=== PATIENT | male | born 1950 | race Caucasian/White ===

== ENCOUNTER → 2023-11-13 08:22 | Outpatient (REF) | payer MEDICARE, OTHER, SELFPAY ==
[2023-11-13 11:12] LABS: ALT (SGPT) 28 U/L (0-50); AST (SGOT) 43 U/L (17-59); Albumin 4.4 g/dl (3.5-5.0); Alkaline Phosphatase 99 U/L (38-126); Blood Urea Nitrogen 17 mg/dl (9-20); Calcium 9.8 mg/dl (8.4-10.2); Carbon Dioxide 27 mmol/L (22-30); Chloride 100 mmol/L (98-107); Glucose 97 mg/dl (70-99); HDL Cholesterol 23 mg/dl; LDL Cholesterol, Calculated 55 mg/dl; Potassium 4.1 mmol/L (3.5-5.1); Sodium 139 mmol/L (135-145); Total Bilirubin 1.8 mg/dl (0.2-1.3); Total Cholesterol 122 mg/dl (50-199); Triglyceride 221 mg/dl (10-149); Very Low Density Lipoprotein 44 mg/dl (0-30); eGFR > 60.00
== END ==
LOC: REG 08:22
PROVIDERS: ATTENDING PHYSICIAN Family Medicine
DX: R73.01 Impaired fasting glucose (principal); E78.2 Mixed hyperlipidemia
CPT/HCPCS: 36415; 80053; 80061

== ENCOUNTER → 2023-11-14 15:46 | Outpatient (REF) | payer MEDICARE, OTHER, SELFPAY | LOC: RAD 15:46 | PROVIDERS: ATTENDING PHYSICIAN Family Medicine | DX: M79.672 Pain in left foot (principal) | CPT/HCPCS: 73630 ==

== ENCOUNTER → 2024-05-18 07:41 | Outpatient (REF) | payer MEDICARE, OTHER, SELFPAY ==
[2024-05-18 08:48] LABS: ALT (SGPT) 36 U/L (0-50); AST (SGOT) 31 U/L (17-59); Albumin 4.2 g/dl (3.5-5.0); Alkaline Phosphatase 88 U/L (38-126); Blood Urea Nitrogen 19 mg/dl (9-20); Calcium 9.7 mg/dl (8.4-10.2); Carbon Dioxide 30 mmol/L (22-30); Chloride 103 mmol/L (98-107); Glucose 106 mg/dl (70-99); HDL Cholesterol 20 mg/dl; Potassium 3.8 mmol/L (3.5-5.1); Sodium 144 mmol/L (135-145); Total Bilirubin 0.7 mg/dl (0.2-1.3); Total Cholesterol 127 mg/dl (50-199); Total Protein 7.6 g/dl (6.3-8.2); eGFR > 60.00
[2024-05-18 08:50] LABS: Triglyceride 426 mg/dl (10-149)
[2024-05-18 09:14] LABS: LDL Cholesterol, Direct 38 mg/dl
[2024-05-18 09:18] LABS: PSA, Total - Screen 2.21 ng/ml (0.0-4.0)
== END ==
LOC: REG 07:41
PROVIDERS: ATTENDING PHYSICIAN Family Medicine
DX: I10 Essential (primary) hypertension (principal); E78.2 Mixed hyperlipidemia; K76.0 Fatty (change of) liver, not elsewhere classified; Z12.5 Encounter for screening for malignant neoplasm of prostate
CPT/HCPCS: 36415; 80053; 80061; 83721; G0103

== ENCOUNTER → 2024-11-11 09:13 | Outpatient (REF) | payer MEDICARE, OTHER, SELFPAY ==
[2024-11-11 11:12] LABS: ALT (SGPT) 42 U/L (0-50); AST (SGOT) 32 U/L (17-59); Albumin 4.1 g/dl (3.5-5.0); Alkaline Phosphatase 94 U/L (38-126); Blood Urea Nitrogen 16 mg/dl (9-20); Calcium 9.8 mg/dl (8.4-10.2); Carbon Dioxide 29 mmol/L (22-30); Chloride 105 mmol/L (98-107); Glucose 99 mg/dl (70-99); HDL Cholesterol 20 mg/dl; LDL Cholesterol, Calculated 44 mg/dl; Potassium 4.1 mmol/L (3.5-5.1); Sodium 143 mmol/L (135-145); Total Bilirubin 1.4 mg/dl (0.2-1.3); Total Cholesterol 138 mg/dl (50-199); Total Protein 7.6 g/dl (6.3-8.2); Triglyceride 374 mg/dl (10-149); Very Low Density Lipoprotein 74 mg/dl (0-30); eGFR > 60.00
== END ==
LOC: REG 09:13
PROVIDERS: ATTENDING PHYSICIAN Family Medicine
DX: E78.2 Mixed hyperlipidemia (principal); R73.01 Impaired fasting glucose; K76.0 Fatty (change of) liver, not elsewhere classified
CPT/HCPCS: 36415; 80053; 80061

== ENCOUNTER → 2024-11-19 09:21 | Outpatient (REF) | payer MEDICARE, OTHER, SELFPAY ==
[2024-11-19 10:28] LABS: % Eosinophils 1.9 % (0-6); % Immature Granulocytes 0.5 % (0-0.5); % Lymphocytes 26.5 % (20.5-51.1); % Monocytes 8.3 % (1.7-9.3); % Neutrophils 61.8 % (42.2-75.2); Absolute Basophils 0.1 10^3/uL (0-0.2); Absolute Eosinophils 0.2 10^3/uL (0-0.7); Absolute Lymphocytes 2.1 10^3/uL (1.2-3.4); Absolute Monocytes 0.7 10^3/uL (0.1-0.6); Hematocrit 42.1 % (39.0-52.0); Hemoglobin 14.6 g/dL (13.0-18.0); Mean Corp Hgb Conc. 34.7 g/dL (33.0-37.0); Mean Corpuscular Hgb 32.5 pg (27.0-31.0); Mean Corpuscular Volume 93.8 fL (80.0-94.0); Mean Platelet Volume 9.6 fL (7.4-10.4); Nucleated Red Blood Cells % 0 % (-); Platelet Count 234 10^3/uL (130-400); Red Blood Cell Count 4.49 10^6/uL (4.70-6.10); Red Cell Dist. Width 13.2 % (11.5-14.5)
[2024-11-19 11:59] LABS: TSH 1.03 uIU/ml (0.47-4.68)
== END ==
LOC: REG 09:21
PROVIDERS: ATTENDING PHYSICIAN Family Medicine
DX: R53.83 Other fatigue (principal)
CPT/HCPCS: 36415; 84443; 85025

== ENCOUNTER → 2025-03-24 09:14 | Outpatient (REF) | payer MEDICARE, OTHER, SELFPAY ==
[2025-03-24 10:32] LABS: Hematocrit 39.2 % (39.0-52.0); Hemoglobin 13.4 g/dL (13.0-18.0); Mean Corp Hgb Conc. 34.2 g/dL (33.0-37.0); Mean Corpuscular Volume 93.6 fL (80.0-94.0); Nucleated Red Blood Cells % 0 % (-); Platelet Count 223 10^3/uL (130-400); Red Cell Dist. Width 11.9 % (11.5-14.5)
[2025-03-24 11:18] LABS: C-Reactive Protein 27.50 mg/L (0.0-10.00)
[2025-03-24 11:34] LABS: Uric Acid 8.2 mg/dl (3.5-8.5)
[2025-03-25 16:13] LABS: Rheumatoid Agglutinin Less Than 10 IU (<10 IU)
[2025-03-25 16:43] LABS: Lyme Antibody Screen, EIA Negative (Negative)
== END ==
LOC: REG 09:14
PROVIDERS: ATTENDING PHYSICIAN Family Medicine
DX: M19.90 Unspecified osteoarthritis, unspecified site (principal); R31.9 Hematuria, unspecified
CPT/HCPCS: 36415; 84550; 85025; 85652; 86140; 86430; 86618

== ENCOUNTER → 2025-04-12 09:11 | Outpatient (REF) | payer MEDICARE, OTHER, SELFPAY | LOC: RAD 09:11 | PROVIDERS: ATTENDING PHYSICIAN Student in an Organized Health Care Education/Training Program; FAMILY PHYSICIAN Family Medicine | DX: M25.531 Pain in right wrist (principal) | CPT/HCPCS: 73100; 73120 ==

== ENCOUNTER → 2025-04-23 09:02 | Outpatient (REF) | payer MEDICARE, OTHER, SELFPAY ==
[2025-04-23 10:20] LABS: Hematocrit 42.4 % (39.0-52.0); Hemoglobin 14.5 g/dL (13.0-18.0); Mean Corp Hgb Conc. 34.2 g/dL (33.0-37.0); Mean Corpuscular Volume 93.2 fL (80.0-94.0); Nucleated Red Blood Cells % 0 % (-); Platelet Count 248 10^3/uL (130-400); Red Cell Dist. Width 13.0 % (11.5-14.5)
[2025-04-23 10:45] LABS: ALT (SGPT) 36 U/L (0-50); AST (SGOT) 22 U/L (17-59); Albumin 4.0 g/dl (3.5-5.0); Alkaline Phosphatase 88 U/L (38-126); Blood Urea Nitrogen 17 mg/dl (9-20); Calcium 9.6 mg/dl (8.4-10.2); Carbon Dioxide 27 mmol/L (22-30); Chloride 104 mmol/L (98-107); Glucose 93 mg/dl (70-99); Potassium 3.9 mmol/L (3.5-5.1); Sodium 140 mmol/L (135-145); Total Protein 7.4 g/dl (6.3-8.2); Uric Acid 11.1 mg/dl (3.5-8.5); eGFR > 60.00
[2025-04-23 10:47] LABS: C-Reactive Protein 11.70 mg/L (0.0-10.00)
== END ==
LOC: REG 09:02
PROVIDERS: ATTENDING PHYSICIAN Student in an Organized Health Care Education/Training Program; FAMILY PHYSICIAN Family Medicine
DX: E79.0 Hyperuricemia without signs of inflammatory arthritis and tophaceous disease (principal); M19.90 Unspecified osteoarthritis, unspecified site; M25.40 Effusion, unspecified joint; M79.89 Other specified soft tissue disorders; R70.0 Elevated erythrocyte sedimentation rate; R79.82 Elevated C-reactive protein (CRP); Z87.442 Personal history of urinary calculi
CPT/HCPCS: 36415; 80053; 84550; 85025; 85652; 86140; 86200

== ENCOUNTER → 2025-05-12 09:59 | Outpatient (REF) | payer MEDICARE, OTHER, SELFPAY | LOC: HWRAD 09:59 | PROVIDERS: ATTENDING PHYSICIAN Specialist; FAMILY PHYSICIAN Family Medicine | DX: N20.0 Calculus of kidney (principal) | CPT/HCPCS: 74176 ==

== ENCOUNTER 2025-05-15 12:29 | Emergency (ER) | payer MEDICARE, OTHER, SELFPAY ==
[2025-05-15 12:47] VITALS: BP 115/79
[2025-05-15 15:24] LABS: Hematocrit 40.9 % (39.0-52.0); Hemoglobin 14.0 g/dL (13.0-18.0); Mean Corp Hgb Conc. 34.2 g/dL (33.0-37.0); Mean Corpuscular Volume 91.3 fL (80.0-94.0); Nucleated Red Blood Cells % 0 % (-); Platelet Count 305 10^3/uL (130-400); Red Cell Dist. Width 13.0 % (11.5-14.5)
[2025-05-15] MEDS: NORCO 5/325 1 TABLET PO (15:24)
[2025-05-15 15:48] LABS: ALT (SGPT) 24 U/L (0-50); AST (SGOT) 24 U/L (17-59); Albumin 4.3 g/dl (3.5-5.0); Alkaline Phosphatase 109 U/L (38-126); Blood Urea Nitrogen 13 mg/dl (9-20); Calcium 9.5 mg/dl (8.4-10.2); Carbon Dioxide 28 mmol/L (22-30); Chloride 103 mmol/L (98-107); Glucose 98 mg/dl (70-99); Potassium 3.7 mmol/L (3.5-5.1); Sodium 137 mmol/L (135-145); Total Protein 8.0 g/dl (6.3-8.2); eGFR > 60.00
[2025-05-15 15:52] LABS: C-Reactive Protein 32.40 mg/L (0.0-10.00)
[2025-05-15 16:23] LABS: Body Fluid Second Tech EYM
--- NOTE | 2025-05-15 17:23 | ED.GENMED ---
History of Present Illness
General
Chief Complaint: Musculo-Skeletal Complaint
Time Seen by Provider: 05/15/25 14:36
Past History
Past History
ED Past Medical History: GERD and Other (BPH, OA)
ED Past Surgical History: None
Social History
Tobacco: Non-smoker
Personal:
Living: with family
Employment: Retired
Family History
Family History: Other (Noncontributory)
Course
Orders/Labs/Results
Orders:
Orders
05/15/25 14:53
Hydrocodone 5/APAP 325 [[place] 5/325] 1 tablet PO NOW STA
05/15/25 15:16
C-Reactive Protein Urgent
Comment: ESR & CRP ADDED ON BY FLOOR 3:30PM 05-15-25
Complete Blood Count/With Diff Urgent
Comprehensive Metabolic Panel Urgent
Erythrocyte Sed Rate Urgent
Lyme Progressive Urgent
05/15/25 15:25
Add On- LAB Urgent
Tests Added?: esr, crp
Gram Stain Stat
RANULFO Source: Joint
Specimen Description:
Date Specimen was Collected: 05/15/25
Time Specimen was Collected: 15:39
05/15/25 15:44
Body Fluid Cell Count Urgent
What is the Body Fluid: joint
Date Specimen was Collected: 05/15/25
Time Specimen was Collected: 15:38
Comment: with DIFF
Body Fluid Crystals Urgent
What is the Body Fluid: joint
Date Specimen was Collected: 05/15/25
Time Specimen was Collected: 15:38
Fluid Culture with Gram Stain Urgent
RANULFO Source: Joint Fluid
Specimen Description:
Date Specimen was Collected: 05/15/25
Time Specimen was Collected: 15:39
05/15/25 17:16
COVID-19 Antigen Urgent
Source: Nasal Swab
Influenza A+B Rapid Molecular Urgent
RANULFO Source: Nasal Swab
Specimen Description:
05/15/25 17:20
Ankle, Right 3 view CR [CR Ankle - Right Min 3 Views *] Urgent
Comment:
Reason For Exam: yandel/swelling
CR Knee- Right 4 Or More View* Urgent
Comment:
Reason For Exam: pain/swelling
05/15/25 17:21
Urinalysis Reflex To Culture Urgent
Date Specimen was Collected: 05/15/25
Time Specimen was Collected: 17:20
05/15/25 17:27
Colchicine 0.6 mg PO NOW STA
Colchicine 1.2 mg PO NOW STA
Abnormal Lab Results
05/15/25
15:16
WBC 12.5 H 10^3/uL
(4.8-10.8)
RBC 4.48 L 10^6/uL
(4.70-6.10)
MCH 31.3 H pg
(27.0-31.0)
Absolute Neuts (auto) 9.2 H 10^3/uL
(1.4-6.5)
Absolute Monos (auto) 1.0 H 10^3/uL
(0.1-0.6)
Lymphocytes % 18.0 L %
(20.5-51.1)
ESR 42 H mm/hour
(0-20)
Total Bilirubin 2.3 H mg/dl
(0.2-1.3)
C-Reactive Protein 32.40 H mg/L
(0.0-10.00)
05/15/25 15:16
05/15/25 15:16
Vital Signs
Temp: 37.4 C
Initial and Last Documented VS:
Initial Vital Signs
Temp Pulse Resp BP Pulse Ox
36.9 C 95 18 115/79 95
05/15/25 12:47 05/15/25 12:47 05/15/25 12:47 05/15/25 12:47 05/15/25 12:47
Last Documented Vital Signs
Temp Pulse Resp BP Pulse Ox
37.4 C 95 18 115/79 95
05/15/25 17:46 05/15/25 12:47 05/15/25 12:47 05/15/25 12:47 05/15/25 17:24
MDM/Problems Addressed
Differential Diagnosis Includes:
see MDM
MDM/Problems Addressed:
Note:
CHIEF COMPLAINT(S)
Pain and swelling in the knee and leg.
HISTORY OF PRESENT ILLNESS
The patient 75 y/o M with h/o RA, and recent dx gout, just started MTX 2 days ago from rheum for both
here with R knee pain for a few days
actually started in the R ankle and went up to the knee he says
no injury
having trouble walking
swelling to the knee appreciate
unable to sleep
no warmth, redness, color change, pulselessness/foot drop
. There is no recollection of any specific injury or trauma to the knee, although he mentions a possible twisting incident.
The symptoms of pain and swelling reportedly began before starting methotrexate. The patient denies any history of blood clots but has undergone past wrist surgery due to pain, which he experiences intermittently.\\
pt says he had a fever today, 101 this morning but didn't take anything for it
no cough/coldymptoms
no cp, sob
h/o provoked ddvt previously
CHRONIC MEDICAL CONDITIONS SIGNIFICANTLY AFFECTING CARE
The patient has been suggested to possibly have rheumatoid arthritis based on previous evaluations, but there seems to be uncertainty about this diagnosis. He is currently taking medication for high blood pressure and possibly related medications
prescribed by a senior case manager.
SOCIAL HISTORY
The patient denies using chronic pain medications but mentions taking fuoc-aej-bnllijh medications like Advil occasionally.
MEDICATIONS
- Methotrexate prescribed by a senior case manager.
- Blood pressure medication.
- Uric acid-related medication.
REVIEW OF SYSTEMS
- Musculoskeletal: Persistent pain and swelling in the knee extending to the calf and ankle. Affected mobility and sleep due to discomfort.
- Neurological: No significant chronic pain management medication usage reported.
PHYSICAL EXAM
GENERAL: Alert , in no apparent distress
EYE: pupils equal and reactive
NECK: Supple
ENT: o/p clr, mmm.
CARDIAC: Regular rate and rhythm .
LUNGS: Clear breath sounds bilaterally, no acute respiratory distress, no wheezes/rales/rhonchi
ABDOMEN: Soft, without focal tenderness, no r/g, no cvat, normal bowel sounds
NEUROLOGICAL: Alert and oriented, no focal neuro deficits
SKIN: Warm and dry, skin intact. No warmth or redness or rash on the right leg
MUSCULOSKELETAL: There is moderate swelling to the right knee which looks arthritic but there is also a pretty large suprapatellar effusion without erythema or warmth, the right leg is tender diffusely but he has a great pulse, can flex the knee
approximately 30 degrees, he also can range the ankle but has some tenderness throughout as well, there is no ankle effusion noted
PSYCH: Normal and appropriate interaction.
- Nursing notes reviewed and vital signs reviewed.
PROBLEM LIST
Acute:
- Knee pain and swelling.
- Calf and ankle discomfort impacting mobility.
Chronic:
- Possible rheumatoid arthritis.
- Elevated uric acid levels.
PLAN
- Continue current prescribed medications.
- Follow-up with senior case manager for ongoing management of joint symptoms and evaluation of treatment effectiveness.
DIFFERENTIAL DIAGNOSIS
The Differential Diagnosis includes, in no particular order and is not limited to:
- Rheumatoid arthritis
- Gout
- Osteoarthritis
- Septic arthritis
- Deep vein thrombosis
- Psoriatic arthritis
- Bursitis
- Tendinitis
- Meniscal injury
- Ligamentous strain
CARE-UPDATE
05/15/25 - 17:07
Patient presents for atraumatic right knee pain, he also has right ankle pain, it is really confusing whether it started in his ankle or his knee he is told me in different provider to different stories. But he does have RA and recently had a serum
uric acid level that was elevated so he thinks he has gout. He also took 2 methotrexate the last 2 days to start from his senior case manager. He also had a fever this morning. On exam he looks to have an arthritic right knee, he can flex it 30
degrees, I had a low suspicion for septic arthritis, but felt that he would have some relief with a therapeutic arthrocentesis as well as diagnostic testing to rule out septic arthritis. The fluid analysis looks like gout/inflammatory arthritis and
not septic arthritis.
Patient reports improved pain after medication. F Despite the positive gout diagnosis, the cause of the fever remains uncertain. Plans have been made to swab for influenza and COVID-19, with a consideration of previous urine sample results. The
patients foot and ankle are also symptomatic, potentially due to gouts propensity to affect multiple joints. Discharge plans include monitoring the fever as it may not be directly linked to the current diagnosis of gout.
*Pulse Oximetry
SaO2: 95
Oxygen Mode of Delivery: Room air
ED Attending Note
-
Portions of this chart may have been created with voice recognition software.� Occasional wrong word or��sound alike� substitutions may have occurred due to the inherent limitations of voice recognition software.
Discharge Plan
Departure
Patient Disposition: Home (Routine Discharge)
Date of Disposition: 05/15/25
Time of Disposition: 17:42
Patient with high blood pressure during this ER visit?: No
Condition: Fair
Covid-19: Not Applicable
Discharge Problem:
Gout
Instructions: Gout - ED (DC)
Prescriptions:
New
hydrocodone-acetaminophen 5-325 mg tablet
1 tab PO BID PRN (Reason: Pain) Qty: 5 0RF
colchicine 0.6 mg tablet
0.6 mg PO DAILY Qty: 5 0RF
No Action
PreserVision AREDS-2 1 EACH capsule
1 ea PO BID
lisinopril-hydrochlorothiazide 20-12.5 mg Tablet
2 tab PO DAILY
famotidine 40 mg Tablet
40 mg PO HS
tamsulosin [Flomax] 0.4 mg capsule
0.4 mg PO DAILY Qty: 14 0RF
Referrals:
João Valentine MD [Family Provider, Family Practice] - Follow up in 2-3 days
Activity Restrictions/Additional Instructions:
The fluid in your knee is consistent with gout fluid. You should take colchicine 0.6 mg once a day for 5 more days
You can continue the methotrexate. Watch the fever, were not really sure why you have a fever today. Your urine was normal, your flu and COVID were negative
Your blood work showed that your white count was elevated slightly and you had some signs of inflammation in with positive inflammatory markers. This is all consistent with either gout or rheumatoid arthritis. But he should closely follow-up with
your senior case manager. Watch for any redness, warmth, worsening swelling to your knee or leg, inability to walk. Return for these as needed. Otherwise use a cane to help you walk, use the Jasmeet wrap during the day and remove it at night
If pain is more severe you can use a Vicodin every 6 hours as needed, this is a narcotic, no alcohol or driving on this medication
Interventions
Interventions:
*Risk Screen - Suicide Last Done: 05/15/25 12:47
*General Assessment Last Done: 05/15/25 15:07
*Neglect/Abuse Screening Last Done: 05/15/25 15:07
*ED- Fall Risk Assessment Last Done: 05/15/25 15:07
*ED COVID-19 Vaccine History Last Done: 05/15/25 15:07
*ED Influenza Vaccine History Last Done: 05/15/25 15:07
ED-Musculoskeletal Assessment Last Done: 05/15/25 15:07
Discharge Date and Time
Print Language: CITIZEN OF [place]
[2025-05-15 17:33] LABS: Urine Character Clear (Clear)
[2025-05-15 17:39] LABS: COVID-19 Antigen Negative (Negative)
[2025-05-15] MEDS: COLCHICINE 1.2 MG PO (18:02)
[2025-05-17 16:07] LABS: Lyme Antibody Screen, EIA Negative (Negative)
== END 2025-05-15 18:20 | disposition home or self-care (01) ==
LOC: EMR 12:29
PROVIDERS: Physician Assistant; EMERGENCY PHYSICIAN Emergency Medicine; FAMILY PHYSICIAN Family Medicine
DX: M10.9 Gout, unspecified (principal); M06.9 Rheumatoid arthritis, unspecified; Z11.52 Encounter for screening for COVID-19
CPT/HCPCS: 99284; 73564; 73610; 80053; 81003; 85025; 85652; 86140; 86618; 87015; 87070; 87205; 87502; 87811; 89051; 89060

== ENCOUNTER → 2025-05-18 07:17 | Outpatient (REF) | payer MEDICARE, OTHER, SELFPAY ==
[2025-05-18 09:00] LABS: Hematocrit 40.7 % (39.0-52.0); Hemoglobin 13.3 g/dL (13.0-18.0); Mean Corp Hgb Conc. 32.7 g/dL (33.0-37.0); Mean Corpuscular Volume 95.1 fL (80.0-94.0); Nucleated Red Blood Cells % 0 % (-); Platelet Count 311 10^3/uL (130-400); Red Cell Dist. Width 12.9 % (11.5-14.5)
[2025-05-18 09:27] LABS: ALT (SGPT) 22 U/L (0-50); AST (SGOT) 22 U/L (17-59); Albumin 4.0 g/dl (3.5-5.0); Alkaline Phosphatase 87 U/L (38-126); Blood Urea Nitrogen 20 mg/dl (9-20); Calcium 9.5 mg/dl (8.4-10.2); Carbon Dioxide 26 mmol/L (22-30); Chloride 106 mmol/L (98-107); Glucose 107 mg/dl (70-99); Potassium 3.7 mmol/L (3.5-5.1); Sodium 141 mmol/L (135-145); Total Protein 7.4 g/dl (6.3-8.2); Uric Acid 9.6 mg/dl (3.5-8.5); eGFR > 60.00
[2025-05-18 09:36] LABS: C-Reactive Protein 46.30 mg/L (0.0-10.00)
== END ==
LOC: REG 07:17
PROVIDERS: ATTENDING PHYSICIAN Student in an Organized Health Care Education/Training Program; FAMILY PHYSICIAN Family Medicine
DX: E79.0 Hyperuricemia without signs of inflammatory arthritis and tophaceous disease (principal); M19.90 Unspecified osteoarthritis, unspecified site; M25.40 Effusion, unspecified joint; M79.89 Other specified soft tissue disorders; R70.0 Elevated erythrocyte sedimentation rate; R79.82 Elevated C-reactive protein (CRP); Z87.442 Personal history of urinary calculi
CPT/HCPCS: 36415; 80053; 84550; 85025; 85652; 86140

== ENCOUNTER → 2025-05-25 09:04 | Outpatient (REF) | payer MEDICARE, OTHER, SELFPAY ==
[2025-05-25 11:22] LABS: ALT (SGPT) 64 U/L (0-50); AST (SGOT) 28 U/L (17-59); Albumin 4.0 g/dl (3.5-5.0); Alkaline Phosphatase 69 U/L (38-126); Blood Urea Nitrogen 17 mg/dl (9-20); Calcium 9.7 mg/dl (8.4-10.2); Carbon Dioxide 31 mmol/L (22-30); Chloride 103 mmol/L (98-107); Glucose 77 mg/dl (70-99); HDL Cholesterol 27 mg/dl; LDL Cholesterol, Calculated 69 mg/dl; Potassium 3.5 mmol/L (3.5-5.1); Sodium 140 mmol/L (135-145); Total Protein 7.4 g/dl (6.3-8.2); Very Low Density Lipoprotein 46 mg/dl (0-30); eGFR > 60.00
[2025-05-25 12:05] LABS: PSA, Total - Screen 2.06 ng/ml (0.0-4.0)
[2025-05-26 21:32] LABS: Glu-6-Phosphate Dehydrogenase 13.8 U/g Hb (9.6-16.3)
== END ==
LOC: REG 09:04
PROVIDERS: ATTENDING PHYSICIAN Student in an Organized Health Care Education/Training Program; FAMILY PHYSICIAN Family Medicine
DX: Z12.5 Encounter for screening for malignant neoplasm of prostate (principal); K21.9 Gastro-esophageal reflux disease without esophagitis; R73.01 Impaired fasting glucose; E78.2 Mixed hyperlipidemia; Z87.442 Personal history of urinary calculi; Z51.81 Encounter for therapeutic drug level monitoring; R79.82 Elevated C-reactive protein (CRP); R70.0 Elevated erythrocyte sedimentation rate; M79.89 Other specified soft tissue disorders; M25.40 Effusion, unspecified joint; M19.90 Unspecified osteoarthritis, unspecified site; M10.9 Gout, unspecified; M06.9 Rheumatoid arthritis, unspecified; E79.0 Hyperuricemia without signs of inflammatory arthritis and tophaceous disease
CPT/HCPCS: 36415; 80053; 80061; 82955; G0103

== ENCOUNTER → 2025-06-07 09:19 | Outpatient (REF) | payer MEDICARE, OTHER, SELFPAY | LOC: RAD 09:19 | PROVIDERS: ATTENDING PHYSICIAN Student in an Organized Health Care Education/Training Program; FAMILY PHYSICIAN Family Medicine | DX: M06.9 Rheumatoid arthritis, unspecified (principal); M19.90 Unspecified osteoarthritis, unspecified site; M25.40 Effusion, unspecified joint | CPT/HCPCS: 71046 ==